=== PATIENT | male | born 1955 | race Caucasian/White ===

== ENCOUNTER 2021-06-14 11:32 | Outpatient (CLI) | payer MEDICARE ==
[2021-06-14 12:43] LABS: #Basophils 0.1 10x3/uL (0.0-0.2); #Eosinphils 0.2 10x3/uL (0.0-0.5); #Monocytes 0.5 10x3/uL (0.0-1.1); #Neutrophils 3.2 10x3/uL (1.5-8.4); %Basophils 1.5 % (0.0-2.0); %Eosinophils 2.9 % (0.0-6.0); %Lymphocytes 28.3 % (18.0-47.0); %Monocytes 8.3 % (0.0-10.0); %Neutrophils 58.8 % (40.0-75.0); Mean Corpuscular HGB CONC 33.4 g/dL (32.0-36.0); Mean Corpuscular Hemoglobin 29.4 pg (27.0-33.0); Mean Corpuscular Volume 87.8 fl (81.2-95.1); Mean Platelet Volume 9.6 fl (7.4-10.4); Platelet Count 196 10x3/uL (150-450); RBC Distribution Width 14.3 % (11.5-14.5); Red Blood Cell (RBC) Count 4.77 10x6/uL (4.32-5.72); White Blood Cell (WBC) Count 5.4 10x3/uL (3.5-10.5)
[2021-06-14 13:02] LABS: ALT (SGPT) 15 U/L (8-55); AST (SGOT) 21 U/L (5-34); Alkaline Phosphatase 47 U/L (40-110); Anion Gap 14 mmol/L (10-20); BUN (Urea Nitrogen) 19 mg/dL (8.4-25.7); Bilirubin, Total 0.6 mg/dL (0.2-1.2); Calc. Creatinine Clearance 0 mL/min (70-130); Calcium 9.2 mg/dL (7.8-10.44); Carbon Dioxide 24 mmol/L (23-31); Chloride 109 mmol/L (98-107); Globulin 2.7 g/dL (2.4-3.5); Glucose 70 mg/dL (80-115); Potassium 4.1 mmol/L (3.5-5.1); Protein, Total 6.7 g/dL (5.8-8.1); Sodium 143 mmol/L (136-145)
[2021-06-15 00:09] LABS: SARS-CoV-2 PCR by NAA Not Detected (NotDetected)
== END 2021-06-14 11:33 | disposition home or self-care (01) ==
LOC: LABBT 11:32
PROVIDERS: ATTEND Specialist
DX: Z01.818 Encounter for other preprocedural examination (principal); K64.8 Other hemorrhoids; Z20.822 Contact with and (suspected) exposure to COVID-19
CPT/HCPCS: 80053; 85025; 93005; U0003; U0005; 93010

== ENCOUNTER 2021-06-16 06:14 | Day surgery (SDC) | payer MEDICARE ==
[2021-06-14 10:40] VITALS: BMI 25.0
[2021-06-16] MEDS ORDERED: Lidocaine 1% w/Epinephrine 1:100K 20 ML VIAL ONE (06:28)
[2021-06-16] MEDS ORDERED: Bupivacaine PF 0.5% 30 ML VIAL ONE (06:28)
[2021-06-16] MEDS ORDERED: Lidocaine 2% Jelly 5 ML TUBE ONE (06:28)
[2021-06-16] MEDS ORDERED: Ketorolac Tromethamine 30 MG/ML VIAL ONE (06:44)
[2021-06-16] MEDS ORDERED: Fentanyl 100 MCG/2 ML VIAL ONE (07:00)
[2021-06-16] MEDS ORDERED: Piperacillin/Tazobactam 3.375 GM VIAL ONE (07:26)
[2021-06-16] MEDS ORDERED: Sodium Chloride 0.9% 100 ML ONE (07:27)
[2021-06-16] MEDS ORDERED: ePHEDrine 50 MG/ML VIAL ONE (07:30)
[2021-06-16] MEDS ORDERED: PROPOFOL 200 MG/20 ML VIAL ONE (07:30)
[2021-06-16] MEDS ORDERED: Lidocaine 1% PF 5 ML VIAL ONE (07:30)
[2021-06-16] MEDS ORDERED: Rocuronium Bromide 10 MG/ML (10ML VIAL) ONE (07:30)
[2021-06-16] MEDS ORDERED: Glycopyrrolate 0.2 MG/ML 5 ML SYRINGE ONE (07:30)
[2021-06-16] MEDS ORDERED: Dexamethasone 20 MG/5 ML VIAL ONE (07:30)
[2021-06-16] MEDS ORDERED: Ondansetron PF 4 MG/2 ML Vial ONE (07:30)
== END 2021-06-16 11:33 | disposition home or self-care (01) ==
LOC: SDC 06:14
PROVIDERS: ATTEND Specialist
PROC: 06BY3ZC Excision of Hemorrhoidal Plexus, Percutaneous Approach (ICD-10-PCS; principal; 2021-06-16)
DX: K64.8 Other hemorrhoids (principal); Z79.890 Hormone replacement therapy; Z79.899 Other long term (current) drug therapy; Z98.1 Arthrodesis status
CPT/HCPCS: 88304; J1100; J1885; J2405; J2543; J2704; J3010; J3490; S0020